=== PATIENT | female | born 1975 | race Caucasian/White ===

== ENCOUNTER 2017-07-30 22:50 | Emergency (ER) | payer OTHER ==
[~2017-07-30] VITALS: Ht 157.5 cm; Wt 70.4 kg
[2017-07-31] MEDS ORDERED: traMADol 50 MG TABLET PO ONE (01:00)
[2017-07-31] MEDS ORDERED: ONDANSETRON ODT 4 MG TAB.RAPDIS PO ONE (01:00)
[2017-07-31 01:24] LABS: INFLUENZA A PATIENT NEGATIVE (NEGATIVE); INFLUENZA B PATIENT NEGATIVE (NEGATIVE)
[2017-07-31 01:47] LABS: BILIRUBIN,URINE NEG (NEG); CLARITY,URINE CLEAR; COLOR,URINE YELLOW; GLUCOSE,URINE NEG (NEG)
[2017-07-31 01:48] LABS: BACTERIA,URINE 0 /HPF (0-FEW); NITRITE,URINE NEG (NEG); SQUAMOUS EPITHELIAL CELL,UR FEW /LPF; UROBILINOGEN,URINE 0.2 mg/dL (0.2 mg/dL); WBC,URINE OCC /HPF (0-4)
[2017-07-31] MEDS ORDERED: OXYM15MI4 NS (02:08)
[2017-07-31] MEDS ORDERED: BENZ100C PO (02:08)
--- NOTE | 2017-07-31 02:08 | PHYS DOC ---
Past History Past Medical History: Anxiety Past Surgical History: , Tonsillectomy, Other Alcohol Use: Occasionally Drug Use: None Adult General Chief Complaint Chief Complaint: HEADACHE HPI HPI Patient is a 41 year old female who presents with illness. The patient reports 3 day history of sinus pressure, nasal congestion, sore throat, productive cough , decreased energy. She denies fever, shortness of breath, chest pain, abdominal pain, nausea, vomiting, diarrhea, dysuria. She was seen at urgent care & received prescription for amoxicillin for sinus infection. She has history of anxiety otherwise no past medical history, denies tobacco use. 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 Review of Systems Review of Systems Constitutional: Denies fever or chills Eyes: Denies drainage. HENT: Reports nasal congestion & sore throat Respiratory: Reports cough or shortness of breath Cardiovascular: Denies chest pain or edema GI: Denies abdominal pain, nausea, vomiting, bloody stools or diarrhea : Denies dysuria or hematuria Musculoskeletal: Denies back pain or joint pain Integument: Denies rash or skin lesions Neurologic: Denies headache, focal weakness or sensory changes All other systems were reviewed and found to be within normal limits, except as documented in this note. Current Medications Current Medications Current Medications Medications (Trade) Dose Ordered Sig/Pedro Start Time Stop Time Status Last Admin Dose Admin Ondansetron HCl (Zofran Odt) 4 mg 1X ONCE 07/31/17 01:00 07/31/17 01:04 DC 07/31/17 01:00 4 MG Tramadol HCl (Ultram) 50 mg 1X ONCE 07/31/17 01:00 07/31/17 01:04 DC 07/31/17 01:00 50 MG Allergies Allergies Allergies Coded Allergies Type Severity Reaction Last Updated Verified No Known Drug Allergies 07/31/17 No Physical Exam Physical Exam Constitutional: Well developed, well nourished, no acute distress, non-toxic appearance. HENT: Normocephalic, atraumatic, bilateral external ears normal, oropharynx moist, nose normal. no focal sinus tenderness with palpation Eyes: PERRLA, EOMI, conjunctiva normal, no discharge. Neck: supple, no stridor. no meningismus Cardiovascular: RRR, no murmurs, no edema. Lungs & Thorax: LCTAB, no wheezing, no respiratory distress. Abdomen: soft, nontender, nondistended. Skin: Warm, dry, no erythema, no rash. Back: No tenderness. Extremities: No tenderness, no edema. Neurologic: Alert and oriented X 3, CN2-12 grossly intact, symmetric strength/ sensation to upper & lower extremities, no focal deficits noted. Psychologic: Affect normal, judgement normal, mood normal. Current Patient Data Vital Signs Vital Signs Date Time Temp Pulse Resp B/P (MAP) Pulse Ox O2 Delivery O2 Flow Rate FiO2 07/31/17 01:00 20 98 Room Air 07/31/17 00:15 97.9 80 Lab Results Laboratory Tests Test 07/31/17 00:55 Urine Collection Type Unknown Urine Color Yellow Urine Clarity Clear Urine pH 6.0 Urine Specific [place] 1.020 Urine Protein 30 mg/dl (NEG-TRACE) Urine Glucose (UA) Neg mg/dL (NEG) Urine Ketones (Stick) 15 mg/dL (NEG) Urine Blood Small (NEG) Urine Nitrite Neg (NEG) Urine Bilirubin Neg (NEG) Urine Urobilinogen Dipstick 0.2 mg/dL (0.2 mg/dL) Urine Leukocyte Esterase Neg (NEG) Urine RBC 3-5 /HPF (0-2) Urine WBC Occ /HPF (0-4) Urine Squamous Epithelial Cells Few /LPF Urine Bacteria 0 /HPF (0-FEW) Influenza Type A (Rapid) Negative (NEGATIVE) Influenza Type B (Rapid) Negative (NEGATIVE) EKG EKG [] Radiology/Procedures Radiology/Procedures CXR, 2 views: interpreted by me: no cardiomegaly, no infiltrate, no pneumothorax, no acute process.[] Course & Med Decision Making Course & Med Decision Making Pertinent Labs and Imaging studies reviewed. (See chart for details) The patient presents with illness. She is still not feeling better after starting amoxicillin for sinusitis. Obtained CXR, UA, rapid flu test. No significant abnormality identified. We discussed the amoxicillin at length. Based on her presentation today, I would not place on antibiotics for bacterial sinusitis, much more likely viral. Very little benefit likely to be gained, & could cause side effects, allergy, future resistance. Likely more useful to treat symptoms of viral illness. Recommend rest, hydration, tylenol/ibuprofen scheduled if needed, mucinex, flonase, afrin, tessalon perles. Follow up with PCP if not improving in 2-3 days. Come back for severe shortness of breath, uncontrolled vomiting, any otherwise worsening condition. Discharged home in stable condition. [] Dragon Disclaimer Dragon Disclaimer This electronic medical record was generated, in whole or in part, using a voice recognition dictation system. Departure Departure: Impression: Primary Impression: Upper respiratory infection Disposition: HOME, SELF-CARE Condition: STABLE Referrals: BREE REGAN (PCP) Patient Instructions: Upper Respiratory Infection, Adult, [id number] Additional Instructions: You were seen in the emergency department today for illness. Your influenza test was negative & you did not have pneumonia or UTI. As we discussed, most sinusitis & bronchitis is caused by virus rather than bacteria, & does not benefit from antibiotic treatment. We recommend rest, hydration with clear liquids, tylenol or ibuprofen taken on a schedule throughout the day, mucinex, continue flonase & try afrin but only for up to 3 days as it can become addictive, try tessalon perles for cough, sleep with a humidifier. Follow up with primary care physician if not improving in 2-3 days. Come back for severe shortness of breath, uncontrolled vomiting, any otherwise worsening condition. Scripts Oxymetazoline Hcl (AFRIN) 15 Ml Mist 15 ML NS BID Y for congestion for 3 Days, SPRAY do not use more than twice daily, do not use more than 3 days Prov: GLADYS GALLARDO MD 07/31/17 Benzonatate (TESSALON PERLE) 100 Mg Capsule 1 CAP PO TID, #21 CAP Prov: GLADYS GALLARDO MD 07/31/17 Problem Qualifiers Primary Impression: Upper respiratory infection URI type: unspecified URI Qualified Codes: J06.9 - Acute upper respiratory infection, unspecified GLADYS GALLARDO MD Jul 31, 2017 02:08
[2017-07-31 02:12] VITALS: BP 125/78
--- NOTE | 2017-07-31 07:57 | RAD ---
2 views of the Chest 07/31/2017 2:15 AM Indication: cough Comparison: None Findings: There is no focal consolidation or infiltrate identified. There is no effusion or pneumothorax. The cardiomediastinal silhouette and pulmonary vasculature are within normal limits. No osseous abnormality is identified. Impression: No evidence of acute cardiopulmonary process.
== END 2017-07-31 02:12 | disposition home or self-care (01) ==
LOC: ER 22:50
DX: J06.9 Acute upper respiratory infection, unspecified (principal); F41.9 Anxiety disorder, unspecified
CPT/HCPCS: 71020; 81001; 81025; 87804; 99285; Q0162